=== PATIENT | male | born 1965 | race Caucasian/White ===

== ENCOUNTER 2017-09-09 04:32 | Inpatient (IN) ==
[~2017-09-09 04:32] MED LIST: CILOSTAZOL 100 MG TABLET PO SCH; DEXTROSE 50% 25 GM/50 ML VIAL IV PRN; GLUCAGON 1 MG VIAL IM PRN
[2017-09-09] MEDS ORDERED: NITROGLYCERIN 2% OINT 1 INCH/GM PACK TOP STA (04:57)
[2017-09-09] MEDS ORDERED: ONDANSETRON 4 MG/2 ML VIAL IV STA (04:57)
[2017-09-09] MEDS ORDERED: MORPHINE 2 MG/1 ML SYRINGE IV STA (04:57)
[2017-09-09] MEDS ORDERED: NITROGLYCERIN 2% OINT 1 INCH/GM PACK TOP ONE (05:00)
[2017-09-09] MEDS ORDERED: ONDANSETRON 4 MG/2 ML VIAL ONE (05:00)
[2017-09-09] MEDS ORDERED: MORPHINE 2 MG/1 ML SYRINGE ONE (05:01)
[2017-09-09 05:05] LABS: Basophils # 0.1 10*3/uL (0.0-0.2); Basophils % 1.1 % (0.0-0.8); Eosinophils # 0.3 10*3/uL (0.0-0.87); Eosinophils % 3.6 % (0.00-10.9); Hematocrit 48.9 VOL% (42.0-52.0); Hemoglobin 17.1 GM/DL (14.0-18.0); Immature Granulocytes % 0.3 %; Immature Granulocytes Absolute 0.02 #; Lymphocytes # 2.6 10*3/uL (1.4-4.0); Mean Corpuscular Hemoglobin 32 PG (27-34); Mean Corpuscular Volume 90.4 FL (87-102); Mean Platelet Volume 10.1 FL (9.6-12.0); Monocytes # 0.6 10*3/uL (0.11-0.8); Monocytes % 7.7 % (1.7-12.7); Neutrophils # 3.7 10*3/uL (1.4-7.4); Neutrophils % 51.3 % (38.7-73.9); Platelet Count 215 T/CUMM (130-400); Red Blood Count 5.41 MC/CUMM (3.8-5.5); Red Cell Distribution Width 13.1 % (9.3-17.3); White Blood Count 7.2 T/CUMM (4-12)
[2017-09-09 05:45] LABS: Alanine Aminotransferase 36 U/L (16-61); Albumin 4.1 G/DL (3.4-5.0); Alkaline Phosphatase 48 U/L (45-117); Aspartate Amino Transferase 28 U/L (0-37); Blood Urea Nitrogen 13 MG/DL (7-18); Calcium 8.9 MG/DL (8.5-10.1); Glucose 135 MG/DL (74-106); Sodium 136 MMOL/L (136-145); Total Protein 7.5 G/DL (6.4-8.3)
[2017-09-09 05:46] LABS: Troponin I Only 0.468 NG/ML (0.00-0.045)
[2017-09-09] MEDS ORDERED: MORPHINE 2 MG/1 ML SYRINGE IV PRN ×2 (06:33→09:44)
[2017-09-09] MEDS ORDERED: ONDANSETRON 4 MG/2 ML VIAL IV PRN ×2 (06:34→09:44)
[2017-09-09] MEDS ORDERED: amLODIPine 5 MG TABLET PO SCH (09:00)
[2017-09-09] MEDS ORDERED: NITROGLYCERIN 2% OINT 1 INCH/GM PACK TOP SCH (09:00)
[2017-09-09] MEDS ORDERED: ENOXAPARIN 40 MG/0.4 ML SYRINGE SUBCUT ONE (09:26)
[2017-09-09] MEDS ORDERED: CEFUROXIME INJ 1,500 MG in SODIUM CHLORIDE 0.9% 100 ML IV ONE (09:32)
[2017-09-09] MEDS ORDERED: ENOXAPARIN 40 MG/0.4 ML SYRINGE ONE (09:34)
[2017-09-09] MEDS ORDERED: DEXTROSE 50% 25 GM/50 ML VIAL IV PRN (09:43)
[2017-09-09] MEDS ORDERED: GLUCAGON 1 MG VIAL IM PRN (09:43)
[2017-09-09] MEDS: RANOLAZINE 500 MG TABLET PO SCH ×7 (10:34→21:02)
[2017-09-09] MEDS: amLODIPine 5 MG TABLET PO SCH (10:35)
[2017-09-09] MEDS: METOPROLOL SUCCINATE XL 100 MG TABLET PO SCH ×4 (10:35→15:30)
[2017-09-09] MEDS: predniSONE 20 MG TABLET PO SCH ×4 (10:36→15:30)
[2017-09-09] MEDS: NITROGLYCERIN 2% OINT 1 INCH/GM PACK TOP SCH ×2 (10:43→21:02)
[2017-09-09] MEDS ORDERED: CLORAZEPATE 7.5 MG TABLET ONE (10:44)
[2017-09-09] MEDS: CLORAZEPATE 3.75 MG TABLET PO SCH (10:45)
[2017-09-09] MEDS ORDERED: TRANEXAMIC ACID 1,000 MG/10 ML VIAL IV ONE ×2 (12:54)
[2017-09-09] MEDS ORDERED: CHLORHEXIDINE 4% SOLN 118 ML BOTTLE TOP SCH (15:00)
[2017-09-09] MEDS: CHLORHEXIDINE 4% SOLN 118 ML BOTTLE TOP SCH ×2 (15:22→21:01)
[2017-09-09] MEDS: SODIUM CHLORIDE 0.9% 1,000 ML IV SCH (15:23)
[2017-09-09] MEDS: CHLORHEXIDINE 0.12% ORAL RINSE 60 ML BOTTLE SWISH/SPIT SCH ×6 (15:23→21:02)
[2017-09-09] MEDS: clonazePAM 0.5 MG TABLET PO SCH ×3 (15:25→15:30)
[2017-09-09] MEDS: SERTRALINE 25 MG TABLET PO SCH ×3 (15:26→15:30)
[2017-09-09] MEDS ORDERED: clonazePAM 0.5 MG TABLET PO SCH (21:00)
[2017-09-09] MEDS ORDERED: SERTRALINE 25 MG TABLET PO SCH (21:00)
[2017-09-10] MEDS ORDERED: PAPAVERINE 60 MG/2 ML VIAL ONE (04:43)
[2017-09-10] MEDS ORDERED: VANCOMYCIN 1,000 MG VIAL ONE (04:44)
[2017-09-10] MEDS ORDERED: DIAZEPAM 5 MG TABLET PO ONE (06:00)
[2017-09-10] MEDS ORDERED: FAMOTIDINE 20 MG TABLET PO ONE (06:00)
[2017-09-10] MEDS ORDERED: CEFUROXIME INJ 1,500 MG in SODIUM CHLORIDE 0.9% 50 ML IV ONE (06:00)
[2017-09-10 07:36] LABS: ABG Base Excess -3.4 MMOL/L (-2.5-2.5); ABG HCO3 21.6 MMOL/L (20-26); ABG Oxygen Saturation 99.9 % (95-100); ABG PCO2 32.3 MM HG (35-48); ABG PH 7.405 (7.35-7.45); ABG TCO2 17.3 MMOL/L (23-27); Glucose Heart Surgery 164 MG/DL (74-106); Hematocrit Heart Surgery 44.3 PERCENT (42-52); Hemoglobin Heart Surgery 14.4 G/DL (14.0-18.0); Ionized Calcium Arterial 1.19 MMOL/L (1.21-1.46); PCO2 Patient Temp Arterial 32.3 MMHG; PH Patient Temp Arterial 7.405; Patient Temperature 37 CELCIUS; Potassium Heart/CVR 3.7 MMOL/L (3.5-5.1); Sodium Heart/CVR 140 MMOL/L (135-145)
[2017-09-10] MEDS ORDERED: ALBUTEROL/IPRATROPIUM 3 ML NEB RESP TX ONE (07:45)
[2017-09-10 07:57] LABS: Apearance,Urine CLEAR (Clear); Bilirubin,Urine Negative (Negative); Blood, Urine Negative (Negative); Glucose,Urine (UA) >=500 mg/dL (Negative); Hyaline Casts,Urine 1 /LPF (0-3); Ketones,Urine Negative (Negative); Mucus,Urine Occasional /LPF (Occasional); Nitrite,Urine Negative (Negative); Protein,Urine Negative; RBC,Urine <1 /HPF (0-4); Urine Color Yellow (Yellow); Urine Specific Gravity 1.026 (1.001-1.035); Urine Urobilinogen < 2.0 EU/DL (0.2-1.0); WBC,Urine 1 /HPF (0-6)
[2017-09-10 09:15] LABS: Hematocrit Heart Surgery 32.2 PERCENT (42-52); Hemoglobin Heart Surgery 10.4 G/DL (14.0-18.0); PCO2 Patient Temp Venous 38.5 MM HG; PH Patient Temp Venous 7.394; PO2 Patient Temp Venous 35.8 MM HG; VBG Base Excess -1.1 MEQ/L (0-4); VBG HCO3 23.2 MEQ/L (24-28); VBG Oxygen Saturation 78.2 %; VBG PCO2 44.5 MMHG (41-51); VBG PH 7.351; VBG PO2 44.1 MMHG (17-40)
[2017-09-10 09:47] LABS: Hemoglobin Heart Surgery 11.6 G/DL (14.0-18.0); PCO2 Patient Temp Venous 36.6 MM HG; PH Patient Temp Venous 7.429; PO2 Patient Temp Venous 31.7 MM HG; Potassium Heart/CVR 4.2 MMOL/L (3.5-5.1); VBG Base Excess -0.5 MEQ/L (0-4); VBG HCO3 24.2 MEQ/L (24-28); VBG Oxygen Saturation 78.1 %; VBG PH 7.4; VBG PO2 36.5 MMHG (17-40)
[2017-09-10] MEDS ORDERED: PHENYLEPHRINE DRIP 40 MG/250 ML PREMIX IV ONE (09:50)
[2017-09-10] MEDS ORDERED: CALCIUM CHLORIDE 1,000 MG/10 ML SYRINGE IV ONE (09:50)
[2017-09-10] MEDS ORDERED: NITROPRUSSIDE 50 MG/2 ML VIAL ONE (09:50)
[2017-09-10] MEDS ORDERED: POTASSIUM CHLORIDE RIDER 100 ML IV ONE (09:51)
[2017-09-10] MEDS ORDERED: PROTAMINE SULFATE 50 MG/5 ML VIAL IV ONE (09:52)
[2017-09-10] MEDS ORDERED: SODIUM BICARBONATE 50 MEQ/50 ML SYRINGE IV ONE ×2 (09:52→11:00)
[2017-09-10] MEDS ORDERED: ALBUMIN 5% 12.5 GM/250 ML VIAL IV ONE (09:53)
[2017-09-10 10:33] LABS: Hematocrit Heart Surgery 35.1 PERCENT (42-52); Hemoglobin Heart Surgery 11.4 G/DL (14.0-18.0); PCO2 Patient Temp Venous 39.6 MM HG; PH Patient Temp Venous 7.371; PO2 Patient Temp Venous 37.1 MM HG; Potassium Heart/CVR 4.3 MMOL/L (3.5-5.1); VBG Base Excess -2.1 MEQ/L (0-4); VBG HCO3 22.2 MEQ/L (24-28); VBG Oxygen Saturation 69.1 %; VBG PCO2 39.6 MMHG (41-51); VBG PH 7.371; VBG PO2 37.1 MMHG (17-40)
[2017-09-10] MEDS ORDERED: DEXTROSE 5% KCL 20 MEQ 20 MEQ/1,000 ML BAG IV ONE (10:59)
[2017-09-10 11:00] LABS: ABG HCO3 21.8 MMOL/L (20-26); ABG Oxygen Saturation 99.1 % (95-100); ABG PCO2 37.9 MM HG (35-48); ABG PH 7.377 (7.35-7.45); ABG PO2 323.1 MM HG (80-95); ABG TCO2 22.9 MMOL/L (23-27); Glucose Heart Surgery 198 MG/DL (74-106); Hemoglobin Heart Surgery 12.2 G/DL (14.0-18.0); Ionized Calcium Arterial 1.22 MMOL/L (1.21-1.46); PCO2 Patient Temp Arterial 37.9 MMHG; PH Patient Temp Arterial 7.377; PO2 Patient Temp Arterial 323.1 MM HG; Patient Temperature 37 CELCIUS; Potassium Heart/CVR 3.7 MMOL/L (3.5-5.1); Sodium Heart/CVR 138 MMOL/L (135-145)
[2017-09-10] MEDS ORDERED: methylPREDNISolone SOD SUC 1,000 MG/8 ML VIAL ONE (11:00)
[2017-09-10] MEDS ORDERED: MANNITOL 12.5 GM/50 ML VIAL IV ONE (11:00)
[2017-09-10] MEDS ORDERED: PROTAMINE SULFATE 250 MG/25 ML VIAL IV ONE (11:00)
[2017-09-10] MEDS ORDERED: FUROSEMIDE 20 MG/2 ML VIAL ONE (11:00)
[2017-09-10] MEDS ORDERED: POTASSIUM CHLORIDE 20 MEQ/10 ML VIAL ONE (11:00)
[2017-09-10] MEDS ORDERED: HEPARIN 10,000 UNIT/10 ML VIAL ONE (11:00)
[2017-09-10] MEDS ORDERED: MAGNESIUM SULFATE 1 GM/2 ML VIAL ONE (11:00)
[2017-09-10] MEDS ORDERED: ALBUMIN 25% 25 GM/100 ML VIAL IV ONE (11:00)
[2017-09-10] MEDS ORDERED: AMIODARONE 450 MG/9 ML VIAL IV ONE (11:17)
[2017-09-10] MEDS: LACTATED RINGERS 1,000 ML IV PRN ×2 (11:45→15:05)
[2017-09-10] MEDS ORDERED: SUFentanil 250 MCG/5 ML AMP ONE (12:10)
[2017-09-10] MEDS ORDERED: MIDAZOLAM 10 MG/2 ML VIAL ONE (12:10)
[2017-09-10] MEDS ORDERED: CALCIUM CHLORIDE 1,000 MG/10 ML VIAL IV ONE (12:12)
[2017-09-10] MEDS ORDERED: HEPARIN/NACL 0.9% 2 UNITS/ML 500 ML IV ONE (12:12)
[2017-09-10] MEDS ORDERED: PHENYLEPHRINE DRIP 20 MG/250 ML PREMIX IV ONE (12:12)
[2017-09-10] MEDS ORDERED: SEVOFLURANE 1 UNIT/15 MINUTE INH ONE (12:13)
[2017-09-10] MEDS ORDERED: AMIODARONE 150 MG/3 ML VIAL ONE (12:13)
[2017-09-10] MEDS ORDERED: ETOMIDATE 20 MG/10 ML VIAL IV ONE (12:13)
[2017-09-10] MEDS ORDERED: NITROGLYCERIN DRIP 50 MG/250 ML BOTTLE IV ONE (12:13)
[2017-09-10] MEDS ORDERED: VECURONIUM 10 MG VIAL IV ONE (12:13)
[2017-09-10] MEDS ORDERED: SODIUM CHLORIDE 0.9% 100 ML IV ONE (12:14)
[2017-09-10] MEDS ORDERED: SODIUM CHLORIDE 0.9% 2,000 ML IV ONE (12:14)
[2017-09-10] MEDS ORDERED: SODIUM CHLORIDE 0.9% 250 ML IV ONE (12:14)
[2017-09-10] MEDS ORDERED: LACTATED RINGERS 2,000 ML IV ONE (12:14)
[2017-09-10] MEDS ORDERED: MORPHINE 2 MG/1 ML SYRINGE IV PRN (12:29)
[2017-09-10] MEDS ORDERED: ONDANSETRON 4 MG/2 ML VIAL IV PRN (12:29)
[2017-09-10] MEDS ORDERED: VECURONIUM 10 MG VIAL IV PRN ×2 (12:29)
[2017-09-10] MEDS ORDERED: ACETAMINOPHEN 650 MG SUPP RECTAL PRN (12:29)
[2017-09-10] MEDS ORDERED: LACTATED RINGERS 250 ML IV PRN (12:29)
[2017-09-10] MEDS ORDERED: MAGNESIUM SULF RIDER 2 GM in PREMIX 1 EACH IV PRN (12:29)
[2017-09-10] MEDS ORDERED: INSULIN REGULAR 100 UNIT/ML IV PRN (12:29)
[2017-09-10] MEDS ORDERED: ALBUMIN 5% 12.5 GM in PREMIX 1 EACH IV PRN (12:29)
[2017-09-10] MEDS ORDERED: MAGNESIUM SULF RIDER 4 GM in PREMIX 1 EACH IV PRN (12:29)
[2017-09-10] MEDS ORDERED: INSULIN REGULAR DRIP 100 ML IV SCH (12:29)
[2017-09-10] MEDS ORDERED: CALCIUM CHLORIDE 1,000 MG/10 ML SYRINGE IV PRN (12:29)
[2017-09-10] MEDS ORDERED: POTASSIUM CHLORIDE RIDER 10 MEQ in PREMIX 1 EACH IV PRN (12:29)
[2017-09-10] MEDS ORDERED: PHENYLEPHRINE DRIP 40 MG/250 ML PREMIX IV PRN (12:29)
[2017-09-10] MEDS ORDERED: DEXTROSE 50% 25 GM/50 ML VIAL IV PRN ×2 (12:29)
[2017-09-10] MEDS ORDERED: NITROPRUSSIDE 100 MG in DEXTROSE 5% 250 ML IV PRN (12:29)
[2017-09-10] MEDS ORDERED: INSULIN REGULAR 100 UNIT/ML IV ONE (12:29)
[2017-09-10] MEDS ORDERED: SODIUM CHLORIDE 0.45% 1,000 ML IV SCH ×2 (12:29)
[2017-09-10 12:35] LABS: ABG Base Excess -1.6 MMOL/L (-2.5-2.5); ABG HCO3 23.1 MMOL/L (20-26); ABG Oxygen Saturation 98.8 % (95-100); ABG PCO2 42.3 MM HG (35-48); ABG TCO2 20.9 MMOL/L (23-27); Glucose Heart Surgery 204 MG/DL (74-106); Hematocrit Heart Surgery 40.1 PERCENT (42-52); Potassium Heart/CVR 3.8 MMOL/L (3.5-5.1)
[2017-09-10 12:37] LABS: Basophils # 0.1 10*3/uL (0.0-0.2); Basophils % 0.4 % (0.0-0.8); Eosinophils # 0.1 10*3/uL (0.0-0.87); Eosinophils % 0.7 % (0.00-10.9); Hematocrit 38.2 VOL% (42.0-52.0); Immature Granulocytes % 0.4 %; Immature Granulocytes Absolute 0.05 #; Lymphocytes # 1.5 10*3/uL (1.4-4.0); Lymphocytes % 10.7 % (21.2-54.2); Mean Corpuscular HGB Conc 34.8 GM/DL (32-36); Mean Corpuscular Hemoglobin 32 PG (27-34); Mean Platelet Volume 10.4 FL (9.6-12.0); Monocytes # 0.8 10*3/uL (0.11-0.8); Monocytes % 5.9 % (1.7-12.7); Neutrophils # 11.2 10*3/uL (1.4-7.4); Neutrophils % 81.9 % (38.7-73.9); Red Cell Distribution Width 13.2 % (9.3-17.3)
[2017-09-10 12:38] LABS: Hemoglobin 13.3 GM/DL (14.0-18.0); Platelet Count 189 T/CUMM (130-400); White Blood Count 13.6 T/CUMM (4-12)
[2017-09-10 12:41] LABS: INR 1.1; PT Patient Result 11.4 SECS; Partial Thromboplastin Time 31.1 SECS (0-40)
[2017-09-10 12:51] LABS: Albumin 3.4 G/DL (3.4-5.0); Bilirubin,Total 0.7 MG/DL (0.2-1.0); Calcium 8.4 MG/DL (8.5-10.1); Magnesium 2.6 MG/DL (1.8-2.4); Potassium 4.2 MMOL/L (3.5-5.1); Total Protein 5.4 G/DL (6.4-8.3)
[2017-09-10] MEDS: MIDAZOLAM 2 MG/2 ML VIAL IV PRN (13:00)
[2017-09-10 13:09] LABS: CKMB % 5.2 %
[2017-09-10 13:15] LABS: Troponin I Only 2.99 NG/ML (0.00-0.045)
[2017-09-10] MEDS: KETOROLAC 30 MG/1 ML VIAL IV SCH ×2 (13:30→19:11)
[2017-09-10] MEDS: MIDAZOLAM 10 MG/2 ML VIAL IV PRN ×2 (13:50→14:00)
[2017-09-10] MEDS: CLORAZEPATE 3.75 MG TABLET PO SCH (14:15)
[2017-09-10] MEDS: CHLORHEXIDINE 4% SOLN 118 ML BOTTLE TOP SCH (14:16)
[2017-09-10] MEDS: amLODIPine 5 MG TABLET PO SCH (14:17)
[2017-09-10] MEDS: CHLORHEXIDINE 0.12% ORAL RINSE 60 ML BOTTLE SWISH/SPIT SCH ×2 (14:17→21:10)
[2017-09-10] MEDS: NITROGLYCERIN 2% OINT 1 INCH/GM PACK TOP SCH (14:17)
[2017-09-10] MEDS: METOPROLOL SUCCINATE XL 100 MG TABLET PO SCH (14:18)
[2017-09-10] MEDS: SODIUM CHLORIDE 0.9% 1,000 ML IV SCH (14:18)
[2017-09-10] MEDS: RANOLAZINE 500 MG TABLET PO SCH (14:18)
[2017-09-10] MEDS: predniSONE 20 MG TABLET PO SCH (14:18)
[2017-09-10] MEDS ORDERED: PROPOFOL 1,000 MG/100 ML BOTTLE IV ONE (14:30)
[2017-09-10] MEDS: PROPOFOL 1,000 MG/100 ML BOTTLE IV SCH ×2 (15:00→23:48)
[2017-09-10 17:07] LABS: ABG Base Excess -2.7 MMOL/L (-2.5-2.5); ABG HCO3 22.2 MMOL/L (20-26); ABG Oxygen Saturation 99.3 % (95-100); ABG PCO2 42.6 MM HG (35-48); ABG PH 7.342 (7.35-7.45); ABG TCO2 20.3 MMOL/L (23-27); Glucose Heart Surgery 223 MG/DL (74-106); Hematocrit Heart Surgery 40.8 PERCENT (42-52); Hemoglobin Heart Surgery 13.3 G/DL (14.0-18.0); Potassium Heart/CVR 4.3 MMOL/L (3.5-5.1)
[2017-09-10] MEDS: CEFUROXIME INJ 1,500 MG in SODIUM CHLORIDE 0.9% 50 ML IV SCH (19:20)
[2017-09-10] MEDS ORDERED: FUROSEMIDE 40 MG/4 ML VIAL IV PRN (19:46)
[2017-09-10] MEDS ORDERED: AMIODARONE INJ 450 MG in DEXTROSE 5% 241 ML IV SCH (21:00)
[2017-09-10 21:36] LABS: ABG Base Excess -0.7 MMOL/L (-2.5-2.5); ABG HCO3 23.8 MMOL/L (20-26); ABG Oxygen Saturation 99.6 % (95-100); ABG PCO2 36.3 MM HG (35-48); ABG PH 7.417 (7.35-7.45); ABG TCO2 20.4 MMOL/L (23-27); Glucose Heart Surgery 161 MG/DL (74-106); Hematocrit Heart Surgery 39.5 PERCENT (42-52); Hemoglobin Heart Surgery 12.8 G/DL (14.0-18.0); Potassium Heart/CVR 3.7 MMOL/L (3.5-5.1)
[2017-09-10] MEDS: POTASSIUM CHLORIDE RIDER 20 MEQ in PREMIX 1 EACH IV PRN (21:47)
[2017-09-10] MEDS: chlordiazePOXIDE 25 MG CAPSULE PO SCH (21:51)
[2017-09-10 22:05] LABS: CKMB % 2.4 %
[2017-09-10 22:07] LABS: Troponin I Only 2.65 NG/ML (0.00-0.045)
[2017-09-11] MEDS: KETOROLAC 30 MG/1 ML VIAL IV SCH ×4 (00:48→18:03)
[2017-09-11 01:50] LABS: ABG Oxygen Saturation 98.9 % (95-100); ABG PCO2 32.2 MM HG (35-48); ABG PH 7.471 (7.35-7.45); ABG PO2 169.4 MM HG (80-95); ABG TCO2 23.9 MMOL/L (23-27); Glucose Heart Surgery 121 MG/DL (74-106); Hemoglobin Heart Surgery 12.9 G/DL (14.0-18.0); Potassium Heart/CVR 3.8 MMOL/L (3.5-5.1)
[2017-09-11] MEDS: POTASSIUM CHLORIDE RIDER 20 MEQ in PREMIX 1 EACH IV PRN ×2 (02:05→05:50)
[2017-09-11] MEDS: MORPHINE 10 MG/1 ML VIAL IV PRN ×2 (03:45→08:30)
[2017-09-11] MEDS: PROPOFOL 1,000 MG/100 ML BOTTLE IV SCH ×2 (03:47→07:29)
[2017-09-11 04:49] LABS: Basophils % 0.2 % (0.0-0.8); Hematocrit 36.7 VOL% (42.0-52.0); Hemoglobin 12.9 GM/DL (14.0-18.0); Immature Granulocytes % 0.3 %; Immature Granulocytes Absolute 0.04 #; Lymphocytes # 1.1 10*3/uL (1.4-4.0); Lymphocytes % 9.2 % (21.2-54.2); Mean Corpuscular HGB Conc 35.1 GM/DL (32-36); Mean Corpuscular Hemoglobin 32 PG (27-34); Mean Corpuscular Volume 89.7 FL (87-102); Mean Platelet Volume 10.6 FL (9.6-12.0); Monocytes # 0.6 10*3/uL (0.11-0.8); Monocytes % 5.2 % (1.7-12.7); Neutrophils # 9.7 10*3/uL (1.4-7.4); Neutrophils % 85.1 % (38.7-73.9); Platelet Count 154 T/CUMM (130-400); Red Blood Count 4.09 MC/CUMM (3.8-5.5); Red Cell Distribution Width 13.2 % (9.3-17.3); White Blood Count 11.4 T/CUMM (4-12)
[2017-09-11 04:50] LABS: ABG Base Excess -0.8 MMOL/L (-2.5-2.5); ABG HCO3 23.8 MMOL/L (20-26); ABG Oxygen Saturation 99.2 % (95-100); ABG PCO2 33.6 MM HG (35-48); ABG PH 7.438 (7.35-7.45); ABG TCO2 19.9 MMOL/L (23-27); Glucose Heart Surgery 138 MG/DL (74-106); Hematocrit Heart Surgery 39.1 PERCENT (42-52); Hemoglobin Heart Surgery 12.7 G/DL (14.0-18.0); Potassium Heart/CVR 3.8 MMOL/L (3.5-5.1)
[2017-09-11 05:19] LABS: CKMB % 1.5 %
[2017-09-11 05:24] LABS: Alanine Aminotransferase 32 U/L (16-61); Alkaline Phosphatase 33 U/L (45-117); Aspartate Amino Transferase 44 U/L (0-37); Bilirubin,Direct < 0.100 MG/DL (0.0-0.20); Blood Urea Nitrogen 14 MG/DL (7-18); Calcium 8.5 MG/DL (8.5-10.1); Glucose 131 MG/DL (74-106); Sodium 143 MMOL/L (136-145); Total Protein 5.2 G/DL (6.4-8.3)
[2017-09-11 05:27] LABS: Troponin I Only 2.06 NG/ML (0.00-0.045)
[2017-09-11] MEDS: chlordiazePOXIDE 25 MG CAPSULE PO SCH (06:08)
[2017-09-11] MEDS: CEFUROXIME INJ 1,500 MG in SODIUM CHLORIDE 0.9% 50 ML IV SCH (07:27)
[2017-09-11] MEDS ORDERED: AMIODARONE 200 MG TABLET PO SCH (09:30)
[2017-09-11] MEDS ORDERED: NITROGLYCERIN SL 0.4 MG TABLET SL PRN (09:36)
[2017-09-11] MEDS ORDERED: GLUCAGON 1 MG VIAL IM PRN ×2 (09:36)
[2017-09-11] MEDS ORDERED: ALUMINUM/MAGNES/SIMETH MAX STR 30 ML UDCUP PO PRN (09:36)
[2017-09-11] MEDS ORDERED: SODIUM CHLOR 0.45% KCL 20 MEQ 20 MEQ/1,000 ML BAG IV SCH (09:36)
[2017-09-11] MEDS ORDERED: ACETAMINOPHEN 325 MG TABLET PO PRN (09:36)
[2017-09-11] MEDS ORDERED: ONDANSETRON 4 MG/2 ML VIAL IV PRN (09:36)
[2017-09-11] MEDS ORDERED: POTASSIUM CHLORIDE 20 MEQ TABLET PO PRN (09:36)
[2017-09-11] MEDS ORDERED: MAGNESIUM HYDROXIDE SUSP 30 ML UDCUP PO PRN (09:36)
[2017-09-11] MEDS ORDERED: ZALEPLON 5 MG CAPSULE PO PRN (09:36)
[2017-09-11] MEDS ORDERED: MAGNESIUM SULF RIDER 4 GM in PREMIX 1 EACH IV PRN (09:36)
[2017-09-11] MEDS ORDERED: DEXTROSE 50% 25 GM/50 ML VIAL IV PRN ×2 (09:36)
[2017-09-11] MEDS ORDERED: MAGNESIUM SULF RIDER 2 GM in PREMIX 1 EACH IV PRN (09:36)
[2017-09-11] MEDS ORDERED: KETOROLAC 30 MG/1 ML VIAL IV SCH (09:36)
[2017-09-11] MEDS ORDERED: NON-FORMULARY MEDICATION (Lansoprazole [Prevacid] 30 MG) PO SCH (09:36)
[2017-09-11] MEDS: CHLORHEXIDINE 0.12% ORAL RINSE 60 ML BOTTLE SWISH/SPIT SCH ×2 (09:50→20:34)
[2017-09-11] MEDS: ISOSORBIDE MONONITRATE 60 MG TABLET PO SCH (10:00)
[2017-09-11] MEDS: METOPROLOL SUCCINATE XL 100 MG TABLET PO SCH (10:00)
[2017-09-11] MEDS: amLODIPine 5 MG TABLET PO SCH (10:00)
[2017-09-11] MEDS: SERTRALINE 25 MG TABLET PO SCH (10:17)
[2017-09-11] MEDS: AMIODARONE 200 MG TABLET PO SCH ×2 (14:17→20:38)
[2017-09-11] MEDS: oxyCODONE/ACETAMINOPHEN 5-325 MG TABLET PO PRN ×2 (16:25→20:37)
[2017-09-11] MEDS: RANOLAZINE 500 MG TABLET PO SCH (20:37)
[2017-09-12] MEDS: KETOROLAC 30 MG/1 ML VIAL IV SCH ×4 (00:01→17:41)
[2017-09-12] MEDS: oxyCODONE/ACETAMINOPHEN 5-325 MG TABLET PO PRN ×2 (01:48→05:42)
[2017-09-12 05:04] LABS: Basophils % 0.2 % (0.0-0.8); Hematocrit 38.3 VOL% (42.0-52.0); Hemoglobin 13.2 GM/DL (14.0-18.0); Immature Granulocytes % 0.8 %; Immature Granulocytes Absolute 0.14 #; Lymphocytes # 2.6 10*3/uL (1.4-4.0); Lymphocytes % 13.9 % (21.2-54.2); Mean Corpuscular HGB Conc 34.5 GM/DL (32-36); Mean Corpuscular Hemoglobin 32 PG (27-34); Mean Corpuscular Volume 92.1 FL (87-102); Mean Platelet Volume 11.5 FL (9.6-12.0); Monocytes # 1.1 10*3/uL (0.11-0.8); Monocytes % 5.8 % (1.7-12.7); Neutrophils # 14.7 10*3/uL (1.4-7.4); Neutrophils % 79.3 % (38.7-73.9); Platelet Count 164 T/CUMM (130-400); Red Blood Count 4.16 MC/CUMM (3.8-5.5); Red Cell Distribution Width 13.6 % (9.3-17.3); White Blood Count 18.6 T/CUMM (4-12)
[2017-09-12] MEDS ORDERED: FUROSEMIDE 40 MG/4 ML VIAL IV ONE ×3 (06:00→20:00)
[2017-09-12 06:08] LABS: Albumin 3.1 G/DL (3.4-5.0); Bilirubin,Direct 0.2 MG/DL (0.0-0.20); Bilirubin,Indirect 0.5 MG/DL (0.0-1.0); Bilirubin,Total 0.7 MG/DL (0.2-1.0); CKMB % 2.5 %; Calcium 8.7 MG/DL (8.5-10.1); Magnesium 2.3 MG/DL (1.8-2.4); Osmolality,Calculated 284.8 MOS/KG (273-304); Potassium 4.5 MMOL/L (3.5-5.1); Total Protein 5.8 G/DL (6.4-8.3)
[2017-09-12 06:21] LABS: Troponin I Only 13.7 NG/ML (0.00-0.045)
[2017-09-12] MEDS ORDERED: ASPIRIN EC 325 MG TABLET PO SCH (09:00)
[2017-09-12] MEDS ORDERED: Dapagliflozin Propanediol [Farxiga] 10 MG PO SCH (09:00)
[2017-09-12] MEDS ORDERED: ASPIRIN 325 MG TABLET PO SCH (09:00)
[2017-09-12] MEDS ORDERED: ROSUVASTATIN 10 MG TABLET PO SCH (09:00)
[2017-09-12] MEDS: ISOSORBIDE MONONITRATE 60 MG TABLET PO SCH (09:38)
[2017-09-12] MEDS: AMIODARONE 200 MG TABLET PO SCH ×2 (09:38→21:11)
[2017-09-12] MEDS: DOCUSATE SODIUM 100 MG CAPSULE PO SCH (09:38)
[2017-09-12] MEDS: CILOSTAZOL 100 MG TABLET PO SCH (09:38)
[2017-09-12] MEDS: SERTRALINE 25 MG TABLET PO SCH (09:38)
[2017-09-12] MEDS: PANTOPRAZOLE 40 MG TABLET PO SCH (09:38)
[2017-09-12] MEDS: METOPROLOL SUCCINATE XL 100 MG TABLET PO SCH (09:38)
[2017-09-12] MEDS: RANOLAZINE 500 MG TABLET PO SCH (09:38)
[2017-09-12] MEDS: amLODIPine 5 MG TABLET PO SCH (09:38)
[2017-09-12] MEDS: CHLORHEXIDINE 0.12% ORAL RINSE 60 ML BOTTLE SWISH/SPIT SCH (09:43)
[2017-09-12] MEDS: FERROUS SULFATE 325 MG TABLET PO SCH (09:43)
[2017-09-12] MEDS: ALBUTEROL/IPRATROPIUM 3 ML NEB RESP TX SCH ×3 (11:39→19:43)
[2017-09-12] MEDS: INSULIN REGULAR 100 UNIT/ML SUBCUT SCH ×3 (12:27→21:11)
[2017-09-12 15:24] LABS: ABG HCO3 27.2 MMOL/L (20-26); ABG Oxygen Saturation 85.5 % (95-100); ABG TCO2 28.4 MMOL/L (23-27); Allen Test Positive
[2017-09-12 16:17] LABS: ABG Base Excess 3.1 MMOL/L (-2.5-2.5); ABG HCO3 27.1 MMOL/L (20-26); ABG Oxygen Saturation 87.9 % (95-100); ABG PCO2 39.2 MM HG (35-48); ABG PH 7.457 (7.35-7.45); ABG PO2 50.4 MM HG (80-95); ABG TCO2 28.3 MMOL/L (23-27)
[2017-09-12] MEDS ORDERED: CRESTOR PO SCH (21:00)
[2017-09-12] MEDS: INSULIN NPH 100 UNIT/ML SUBCUT SCH (21:08)
[2017-09-12] MEDS: cefTRIAXone 1,000 MG in SYRINGE 1 EACH IV SCH (21:10)
[2017-09-12] MEDS: RANEXA PO SCH (21:16)
[2017-09-12] MEDS: HYDROmorphone 2 MG/1 ML VIAL IV PRN (23:58)
[2017-09-13] MEDS: INSULIN REGULAR 100 UNIT/ML SUBCUT SCH ×6 (00:05→20:47)
[2017-09-13] MEDS: CHLORHEXIDINE 0.12% ORAL RINSE 60 ML BOTTLE SWISH/SPIT SCH ×3 (00:11→20:48)
[2017-09-13] MEDS: ALBUTEROL/IPRATROPIUM 3 ML NEB RESP TX SCH ×6 (00:14→19:58)
[2017-09-13] MEDS: KETOROLAC 30 MG/1 ML VIAL IV SCH (01:38)
[2017-09-13] MEDS ORDERED: LACTATED RINGERS 250 ML IV ONE ×2 (02:08→05:02)
[2017-09-13 02:26] LABS: Basophils % 0.3 % (0.0-0.8); Eosinophils % 0.3 % (0.00-10.9); Hematocrit 33.3 VOL% (42.0-52.0); Hemoglobin 11.4 GM/DL (14.0-18.0); Immature Granulocytes % 0.5 %; Immature Granulocytes Absolute 0.06 #; Lymphocytes # 1.7 10*3/uL (1.4-4.0); Lymphocytes % 14.4 % (21.2-54.2); Mean Corpuscular HGB Conc 34.2 GM/DL (32-36); Mean Corpuscular Hemoglobin 32 PG (27-34); Mean Corpuscular Volume 92.2 FL (87-102); Mean Platelet Volume 10.8 FL (9.6-12.0); Monocytes # 0.7 10*3/uL (0.11-0.8); Monocytes % 6.5 % (1.7-12.7); Neutrophils # 8.9 10*3/uL (1.4-7.4); Platelet Count 113 T/CUMM (130-400); Red Blood Count 3.61 MC/CUMM (3.8-5.5); Red Cell Distribution Width 13.3 % (9.3-17.3); White Blood Count 11.5 T/CUMM (4-12)
[2017-09-13 02:30] LABS: Allen Test Positive; Pt O2 Delivery Device Venturi Mask
[2017-09-13] MEDS ORDERED: LACTATED RINGERS 1,000 ML IV SCH (02:30)
[2017-09-13 02:31] LABS: ABG Base Excess -0.5 MMOL/L (-2.5-2.5); ABG HCO3 23.7 MMOL/L (20-26); ABG Oxygen Saturation 83.3 % (95-100); ABG PCO2 39.6 MM HG (35-48); ABG PH 7.395 (7.35-7.45); ABG PO2 49.5 MM HG (80-95); ABG TCO2 21.7 MMOL/L (23-27)
[2017-09-13 03:05] LABS: Albumin 2.6 G/DL (3.4-5.0); Bilirubin,Direct 0.24 MG/DL (0.0-0.20); Bilirubin,Total 1.2 MG/DL (0.2-1.0); CKMB % 1.4 %; Calcium 8.1 MG/DL (8.5-10.1); Osmolality,Calculated 287.8 MOS/KG (273-304); Potassium 4.7 MMOL/L (3.5-5.1)
[2017-09-13 03:06] LABS: Calcium 8.4 MG/DL (8.5-10.1); Magnesium 2.4 MG/DL (1.8-2.4); Osmolality,Calculated 286.8 MOS/KG (273-304); Potassium 4.7 MMOL/L (3.5-5.1)
[2017-09-13 03:08] LABS: Troponin I Only 15.7 NG/ML (0.00-0.045)
[2017-09-13] MEDS: PHENYLEPHRINE DRIP 40 MG/250 ML PREMIX IV SCH ×2 (05:57→19:41)
[2017-09-13] MEDS: HEPARIN DRIP 25,000 UNITS/500 ML PREMIX IV SCH ×2 (05:58→23:00)
[2017-09-13 06:05] LABS: INR 1.3; PT Patient Result 13.4 SECS; Partial Thromboplastin Time 32.7 SECS (0-40)
[2017-09-13 06:10] LABS: Allen Test Positive
[2017-09-13 06:11] LABS: ABG Base Excess -2.1 MMOL/L (-2.5-2.5); ABG HCO3 22.6 MMOL/L (20-26); ABG Oxygen Saturation 92.4 % (95-100); ABG PCO2 40.8 MM HG (35-48); ABG PH 7.363 (7.35-7.45); ABG TCO2 20.6 MMOL/L (23-27)
[2017-09-13] MEDS ORDERED: ASPIRIN EC PO SCH (09:00)
[2017-09-13] MEDS ORDERED: TOPROL XL PO SCH (09:00)
[2017-09-13] MEDS ORDERED: NORVASC PO SCH (09:00)
[2017-09-13] MEDS ORDERED: IMDUR PO SCH (09:00)
[2017-09-13] MEDS ORDERED: LISINOPRIL 5 MG TABLET PO SCH (09:00)
[2017-09-13] MEDS ORDERED: ZOLOFT PO SCH (09:00)
[2017-09-13] MEDS: INSULIN NPH 100 UNIT/ML SUBCUT SCH ×2 (09:23→15:59)
[2017-09-13] MEDS: FERROUS SULFATE 325 MG TABLET PO SCH (10:29)
[2017-09-13] MEDS: CILOSTAZOL 100 MG TABLET PO SCH (10:47)
[2017-09-13] MEDS: PANTOPRAZOLE 40 MG TABLET PO SCH (10:47)
[2017-09-13] MEDS: DOCUSATE SODIUM 100 MG CAPSULE PO SCH (10:47)
[2017-09-13] MEDS: HYDROmorphone 2 MG/1 ML VIAL IV PRN (13:12)
[2017-09-13] MEDS: RANEXA PO SCH (13:38)
[2017-09-13 14:27] LABS: Apearance,Urine Slightly Hazy (Clear); Bilirubin,Urine Negative (Negative); Blood, Urine Moderate mg/dL (Negative); Glucose,Urine (UA) >=500 mg/dL (Negative); Ketones,Urine Negative (Negative); Mucus,Urine Occasional /LPF (Occasional); Nitrite,Urine Negative (Negative); Protein,Urine 30 MG/DL; RBC,Urine 2 /HPF (0-4); WBC,Urine 1 /HPF (0-6)
[2017-09-13 14:29] LABS: Urine Color Dark yellow (Yellow)
[2017-09-13] MEDS ORDERED: PROPOFOL 1,000 MG/100 ML BOTTLE IV ONE (14:35)
[2017-09-13] MEDS: PROPOFOL 1,000 MG/100 ML BOTTLE IV SCH ×4 (14:45→23:45)
[2017-09-13 15:48] LABS: Pt O2 Delivery Device Ventilator
[2017-09-13 15:50] LABS: ABG Base Excess -1.2 MMOL/L (-2.5-2.5); ABG HCO3 23.4 MMOL/L (20-26); ABG Oxygen Saturation 98.5 % (95-100); ABG PCO2 43.1 MM HG (35-48); ABG TCO2 21.8 MMOL/L (23-27)
[2017-09-13] MEDS: methylPREDNISolone SOD SUC 40 MG/1 ML VIAL IV SCH ×2 (18:20→23:56)
[2017-09-13 18:35] LABS: ABG Base Excess 0.4 MMOL/L (-2.5-2.5); ABG HCO3 24.7 MMOL/L (20-26); ABG PH 7.376 (7.35-7.45); ABG PO2 76.4 MM HG (80-95); ABG TCO2 23.2 MMOL/L (23-27); Pt O2 Delivery Device Ventilator
[2017-09-13] MEDS: cefTRIAXone 1,000 MG in SYRINGE 1 EACH IV SCH (20:40)
[2017-09-13] MEDS ORDERED: ROSUVASTATIN 10 MG TABLET PO SCH (21:00)
[2017-09-13] MEDS: ASPIRIN EC 325 MG TABLET PO SCH (21:28)
[2017-09-13] MEDS: SERTRALINE 25 MG TABLET PO SCH (21:28)
[2017-09-14] MEDS: ALBUTEROL/IPRATROPIUM 3 ML NEB RESP TX SCH ×7 (00:09→23:22)
[2017-09-14] MEDS: HYDROmorphone 2 MG/1 ML VIAL IV PRN ×2 (00:52→04:22)
[2017-09-14 03:53] LABS: ABG Base Excess -0.5 MMOL/L (-2.5-2.5); ABG HCO3 25.4 MMOL/L (20-26); ABG Oxygen Saturation 97.9 % (95-100); ABG PCO2 46.6 MM HG (35-48); ABG PH 7.354 (7.35-7.45); ABG PO2 124.7 MM HG (80-95); ABG TCO2 26.8 MMOL/L (23-27); Allen Test Positive; Pt O2 Delivery Device Ventilator
[2017-09-14] MEDS: PHENYLEPHRINE DRIP 40 MG/250 ML PREMIX IV SCH ×2 (04:20→11:01)
[2017-09-14 04:43] LABS: Basophils % 0.1 % (0.0-0.8); Hematocrit 34.1 VOL% (42.0-52.0); Hemoglobin 11.6 GM/DL (14.0-18.0); Immature Granulocytes % 1.4 %; Immature Granulocytes Absolute 0.19 #; Lymphocytes # 0.9 10*3/uL (1.4-4.0); Lymphocytes % 6.7 % (21.2-54.2); Mean Corpuscular Hemoglobin 31 PG (27-34); Mean Corpuscular Volume 92.4 FL (87-102); Mean Platelet Volume 11.4 FL (9.6-12.0); Monocytes # 0.7 10*3/uL (0.11-0.8); Monocytes % 5.3 % (1.7-12.7); NRBC # 0.05 10*3/uL; Neutrophils # 11.8 10*3/uL (1.4-7.4); Neutrophils % 86.5 % (38.7-73.9); Platelet Count 187 T/CUMM (130-400); Red Blood Count 3.69 MC/CUMM (3.8-5.5); Red Cell Distribution Width 13.2 % (9.3-17.3); White Blood Count 13.7 T/CUMM (4-12)
[2017-09-14] MEDS: PROPOFOL 1,000 MG/100 ML BOTTLE IV SCH ×5 (04:50→22:50)
[2017-09-14 05:51] LABS: Albumin 2.7 G/DL (3.4-5.0); Bilirubin,Direct 0.53 MG/DL (0.0-0.20); Bilirubin,Total 0.9 MG/DL (0.2-1.0); Calcium 8.2 MG/DL (8.5-10.1); Magnesium 2.5 MG/DL (1.8-2.4); Osmolality,Calculated 286.7 MOS/KG (273-304); Potassium 4.2 MMOL/L (3.5-5.1); Total Protein 5.9 G/DL (6.4-8.3)
[2017-09-14] MEDS: methylPREDNISolone SOD SUC 40 MG/1 ML VIAL IV SCH ×2 (06:11→18:17)
[2017-09-14 07:37] LABS: Band Neutrophils 4 % (0-10); Lymphocytes 4 % (20-55); Segmented Neutrophils 90 % (50-85); Total Cells Counted 100
[2017-09-14 07:39] LABS: Hypochromasia Slight
[2017-09-14 07:40] LABS: Microcytosis 1+; Platelet Estimate Adequate
[2017-09-14 08:02] LABS: CKMB % 1.1 %
[2017-09-14 08:04] LABS: Troponin I Only 14.1 NG/ML (0.00-0.045)
[2017-09-14 08:28] LABS: ABG Base Excess -1.4 MMOL/L (-2.5-2.5); ABG HCO3 23.2 MMOL/L (20-26); ABG Oxygen Saturation 96.9 % (95-100); ABG PCO2 50.8 MM HG (35-48); ABG PH 7.309 (7.35-7.45); Allen Test Positive; Pt O2 Delivery Device Ventilator
[2017-09-14] MEDS ORDERED: FUROSEMIDE 40 MG/4 ML VIAL IV ONE ×2 (08:49)
[2017-09-14] MEDS: INSULIN REGULAR 100 UNIT/ML SUBCUT SCH ×3 (09:18→18:17)
[2017-09-14] MEDS: INSULIN NPH 100 UNIT/ML SUBCUT SCH ×2 (09:18→20:41)
[2017-09-14] MEDS: ASPIRIN EC 325 MG TABLET PO SCH (09:19)
[2017-09-14] MEDS: DOCUSATE SODIUM 100 MG CAPSULE PO SCH (09:19)
[2017-09-14] MEDS: CILOSTAZOL 100 MG TABLET PO SCH (09:19)
[2017-09-14] MEDS: PANTOPRAZOLE 40 MG TABLET PO SCH (09:19)
[2017-09-14] MEDS: SERTRALINE 25 MG TABLET PO SCH (09:19)
[2017-09-14] MEDS: FERROUS SULFATE 325 MG TABLET PO SCH (09:20)
[2017-09-14] MEDS: CHLORHEXIDINE 0.12% ORAL RINSE 60 ML BOTTLE SWISH/SPIT SCH ×2 (09:20→20:41)
[2017-09-14 12:44] LABS: Hepatitis A Ab IgM Quant 0.03 Index; Hepatitis A Ab IgM Result Negative (Negative); Hepatitis B Core IgM Quant 0.12 Index; Hepatitis B Core IgM Result Negative (Negative); Hepatitis C Virus Ab Quant 0.08 Index; Hepatitis C Virus Ab Result Negative (Negative)
[2017-09-14 13:32] LABS: Hepatitis B Surface Ag Quant 0.23 Index; Hepatitis B Surface Ag Result Negative (Negative)
[2017-09-14] MEDS ORDERED: INSULIN NPH 100 UNIT/ML SUBCUT SCH (16:30)
[2017-09-14] MEDS: cefTRIAXone 1,000 MG in SYRINGE 1 EACH IV SCH (20:39)
[2017-09-14] MEDS: ENOXAPARIN 40 MG/0.4 ML SYRINGE SUBCUT SCH (20:41)
[2017-09-15] MEDS: INSULIN REGULAR 100 UNIT/ML SUBCUT SCH ×4 (00:18→18:16)
[2017-09-15] MEDS: ALBUTEROL/IPRATROPIUM 3 ML NEB RESP TX SCH ×5 (07:17→18:44)
[2017-09-15] MEDS ORDERED: METOCLOPRAMIDE 10 MG/2 ML VIAL ONE (08:54)
[2017-09-15 09:56] LABS: Albumin 2.4 G/DL (3.4-5.0); Bilirubin,Direct 0.39 MG/DL (0.0-0.20); Bilirubin,Indirect 0.3 MG/DL (0.0-1.0); Bilirubin,Total 0.7 MG/DL (0.2-1.0); Calcium 8.5 MG/DL (8.5-10.1); Osmolality,Calculated 304.6 MOS/KG (273-304); Potassium 3.8 MMOL/L (3.5-5.1); Total Protein 5.1 G/DL (6.4-8.3)
[2017-09-15] MEDS: PHENYLEPHRINE DRIP 40 MG/250 ML PREMIX IV SCH (10:17)
[2017-09-15] MEDS: methylPREDNISolone SOD SUC 40 MG/1 ML VIAL IV SCH (10:18)
[2017-09-15] MEDS: FERROUS SULFATE 325 MG TABLET PO SCH (10:19)
[2017-09-15] MEDS: PANTOPRAZOLE 40 MG TABLET PO SCH (10:19)
[2017-09-15] MEDS: CILOSTAZOL 100 MG TABLET PO SCH (10:19)
[2017-09-15] MEDS: DOCUSATE SODIUM 100 MG CAPSULE PO SCH (10:19)
[2017-09-15] MEDS: SERTRALINE 25 MG TABLET PO SCH (10:19)
[2017-09-15] MEDS: INSULIN NPH 100 UNIT/ML SUBCUT SCH ×2 (10:19→20:22)
[2017-09-15] MEDS: ASPIRIN EC 325 MG TABLET PO SCH (10:19)
[2017-09-15] MEDS: CHLORHEXIDINE 0.12% ORAL RINSE 60 ML BOTTLE SWISH/SPIT SCH ×2 (10:19→20:22)
[2017-09-15] MEDS: PROPOFOL 1,000 MG/100 ML BOTTLE IV SCH ×4 (10:20→23:31)
[2017-09-15 10:39] LABS: Basophils % 0.1 % (0.0-0.8); Hematocrit 30.6 VOL% (42.0-52.0); Hemoglobin 10.6 GM/DL (14.0-18.0); Immature Granulocytes Absolute 0.15 #; Lymphocytes # 0.6 10*3/uL (1.4-4.0); Lymphocytes % 3.8 % (21.2-54.2); Mean Corpuscular HGB Conc 34.6 GM/DL (32-36); Mean Corpuscular Hemoglobin 32 PG (27-34); Mean Corpuscular Volume 90.8 FL (87-102); Mean Platelet Volume 11.5 FL (9.6-12.0); Monocytes # 0.6 10*3/uL (0.11-0.8); Monocytes % 4.1 % (1.7-12.7); Neutrophils # 13.5 10*3/uL (1.4-7.4); Platelet Count 207 T/CUMM (130-400); Red Blood Count 3.37 MC/CUMM (3.8-5.5); Red Cell Distribution Width 12.8 % (9.3-17.3); White Blood Count 14.8 T/CUMM (4-12)
[2017-09-15 11:13] LABS: CKMB % 0.5 %
[2017-09-15 11:14] LABS: Troponin I Only 9.83 NG/ML (0.00-0.045)
[2017-09-15 11:41] LABS: ABG Base Excess 4.7 MMOL/L (-2.5-2.5); ABG HCO3 28.7 MMOL/L (20-26); ABG Oxygen Saturation 99.3 % (95-100); ABG PCO2 41.4 MM HG (35-48); ABG PH 7.454 (7.35-7.45); ABG TCO2 25.9 MMOL/L (23-27)
[2017-09-15 11:47] LABS: Phosphorous 2.9 MG/DL (2.5-4.9); Prealbumin 9.5 MG/DL (20-40)
[2017-09-15 12:17] LABS: Hypochromasia 2+; Microcytosis 2+
[2017-09-15] MEDS: METOCLOPRAMIDE 10 MG/2 ML VIAL IV SCH ×2 (13:41→17:07)
[2017-09-15] MEDS ORDERED: DILTIAZEM 50 MG/10 ML VIAL IV ONE (15:37)
[2017-09-15] MEDS ORDERED: AMIODARONE INJ 150 MG in DEXTROSE 5% 100 ML IV ONE (15:38)
[2017-09-15] MEDS ORDERED: SODIUM CHLORIDE 0.9% 100 ML IV ONE (15:41)
[2017-09-15] MEDS ORDERED: DILTIAZEM 100 MG VIAL.ADD IV ONE (15:41)
[2017-09-15] MEDS ORDERED: AMIODARONE 450 MG/9 ML VIAL IV ONE (15:44)
[2017-09-15] MEDS: DILTIAZEM INJ 100 MG in SODIUM CHLORIDE 0.9% 100 ML IV SCH (15:51)
[2017-09-15] MEDS ORDERED: AMIODARONE INJ 450 MG in DEXTROSE 5% 241 ML IV SCH ×2 (16:00)
[2017-09-15] MEDS: MORPHINE 2 MG/1 ML SYRINGE IV PRN (17:14)
[2017-09-15] MEDS ORDERED: METOPROLOL TARTRATE 25 MG TABLET PO SCH (17:30)
[2017-09-15] MEDS ORDERED: ALBUMIN 5% 25 GM in PREMIX 1 EACH IV ONE (17:30)
[2017-09-15] MEDS: cefTRIAXone 1,000 MG in SYRINGE 1 EACH IV SCH (20:22)
[2017-09-15] MEDS: ENOXAPARIN 40 MG/0.4 ML SYRINGE SUBCUT SCH (20:22)
[2017-09-15] MEDS: AMIODARONE INJ 450 MG in DEXTROSE 5% 241 ML IV SCH (23:40)
[2017-09-16] MEDS: ALBUTEROL/IPRATROPIUM 3 ML NEB RESP TX SCH ×6 (00:19→20:28)
[2017-09-16] MEDS: INSULIN REGULAR 100 UNIT/ML SUBCUT SCH ×4 (00:40→19:38)
[2017-09-16] MEDS: METOCLOPRAMIDE 10 MG/2 ML VIAL IV SCH ×3 (00:41→19:39)
[2017-09-16] MEDS: PROPOFOL 1,000 MG/100 ML BOTTLE IV SCH ×2 (03:30→14:00)
[2017-09-16 03:34] LABS: Allen Test Positive; Pt O2 Delivery Device Ventilator
[2017-09-16 03:35] LABS: ABG Base Excess 4.9 MMOL/L (-2.5-2.5); ABG HCO3 28.2 MMOL/L (20-26); ABG Oxygen Saturation 97.7 % (95-100); ABG PCO2 36.8 MM HG (35-48); ABG PH 7.502 (7.35-7.45); ABG PO2 106.5 MM HG (80-95); ABG TCO2 29.3 MMOL/L (23-27)
[2017-09-16 05:13] LABS: Basophils % 0.2 % (0.0-0.8); Eosinophils % 0.1 % (0.00-10.9); Hematocrit 34.1 VOL% (42.0-52.0); Hemoglobin 11.7 GM/DL (14.0-18.0); Immature Granulocytes % 5.2 %; Immature Granulocytes Absolute 0.98 #; Lymphocytes # 1.5 10*3/uL (1.4-4.0); Lymphocytes % 7.9 % (21.2-54.2); Mean Corpuscular HGB Conc 34.3 GM/DL (32-36); Mean Corpuscular Hemoglobin 31 PG (27-34); Mean Corpuscular Volume 91.4 FL (87-102); Mean Platelet Volume 11.2 FL (9.6-12.0); Monocytes # 1.6 10*3/uL (0.11-0.8); Monocytes % 8.4 % (1.7-12.7); NRBC # 1.17 10*3/uL; Neutrophils # 14.9 10*3/uL (1.4-7.4); Neutrophils % 78.2 % (38.7-73.9); Platelet Count 269 T/CUMM (130-400); Red Blood Count 3.73 MC/CUMM (3.8-5.5)
[2017-09-16] MEDS: PHENYLEPHRINE DRIP 40 MG/250 ML PREMIX IV SCH (05:55)
[2017-09-16] MEDS ORDERED: methylPREDNISolone SOD SUC 40 MG/1 ML VIAL IV SCH (06:00)
[2017-09-16 06:03] LABS: Bilirubin,Direct 0.43 MG/DL (0.0-0.20); Bilirubin,Total 0.8 MG/DL (0.2-1.0)
[2017-09-16 06:04] LABS: Bilirubin,Indirect 0.4 MG/DL (0.0-1.0); CKMB % 0.8 %; Magnesium 2.8 MG/DL (1.8-2.4); Osmolality,Calculated 310.6 MOS/KG (273-304); Potassium 3.9 MMOL/L (3.5-5.1); Total Protein 5.9 G/DL (6.4-8.3)
[2017-09-16 06:09] LABS: Troponin I Only 18.1 NG/ML (0.00-0.045)
[2017-09-16] MEDS: HYDROmorphone 2 MG/1 ML VIAL IV PRN ×2 (06:26→21:16)
[2017-09-16 07:35] LABS: Band Neutrophils 7 % (0-10); Lymphocytes 13 % (20-55); Metamyelocytes 2 %; Nucleated Red Blood Cells 3 (0-5); Segmented Neutrophils 68 % (50-85); Total Cells Counted 100
[2017-09-16 07:36] LABS: Hypochromasia 1+; Microcytosis 1+; Platelet Estimate Normal
[2017-09-16] MEDS: FERROUS SULFATE 325 MG TABLET PO SCH (08:31)
[2017-09-16] MEDS: CLINDAMYCIN INJ 600 MG in PREMIX 1 EACH IV SCH ×3 (09:34→22:30)
[2017-09-16] MEDS: ASPIRIN EC 325 MG TABLET PO SCH (09:34)
[2017-09-16] MEDS: LEVOFLOXACIN INJ 500 MG in PREMIX 1 EACH IV SCH (09:34)
[2017-09-16] MEDS: INSULIN NPH 100 UNIT/ML SUBCUT SCH ×2 (09:35→20:52)
[2017-09-16] MEDS: DOCUSATE SODIUM 100 MG CAPSULE PO SCH (09:35)
[2017-09-16] MEDS: PANTOPRAZOLE 40 MG TABLET PO SCH (09:35)
[2017-09-16] MEDS: CILOSTAZOL 100 MG TABLET PO SCH (09:35)
[2017-09-16] MEDS: SERTRALINE 25 MG TABLET PO SCH (09:36)
[2017-09-16] MEDS: CHLORHEXIDINE 0.12% ORAL RINSE 60 ML BOTTLE SWISH/SPIT SCH ×2 (10:24→20:53)
[2017-09-16] MEDS: methylPREDNISolone SOD SUC 40 MG/1 ML VIAL IV SCH ×2 (10:29→19:51)
[2017-09-16] MEDS: METOPROLOL TARTRATE 25 MG TABLET PO SCH ×2 (15:58→20:52)
[2017-09-16] MEDS: DILTIAZEM INJ 100 MG in SODIUM CHLORIDE 0.9% 100 ML IV SCH ×2 (16:03→21:00)
[2017-09-16] MEDS: AMIODARONE INJ 450 MG in DEXTROSE 5% 241 ML IV SCH (16:31)
[2017-09-16] MEDS ORDERED: DILTIAZEM 50 MG/10 ML VIAL IV ONE ×2 (17:10→17:13)
[2017-09-16] MEDS ORDERED: MAGNESIUM SULF RIDER 50 ML IV ONE (18:15)
[2017-09-16 18:22] LABS: Basophils # 0.1 10*3/uL (0.0-0.2); Basophils % 0.3 % (0.0-0.8); Hematocrit 38.1 VOL% (42.0-52.0); Hemoglobin 12.9 GM/DL (14.0-18.0); Immature Granulocytes % 4.1 %; Immature Granulocytes Absolute 0.83 #; Lymphocytes # 3.3 10*3/uL (1.4-4.0); Lymphocytes % 16.2 % (21.2-54.2); Mean Corpuscular HGB Conc 33.9 GM/DL (32-36); Mean Corpuscular Hemoglobin 32 PG (27-34); Mean Corpuscular Volume 93.2 FL (87-102); Mean Platelet Volume 11.5 FL (9.6-12.0); Monocytes # 1.6 10*3/uL (0.11-0.8); Monocytes % 8.1 % (1.7-12.7); NRBC # 0.79 10*3/uL; Neutrophils # 14.5 10*3/uL (1.4-7.4); Neutrophils % 71.3 % (38.7-73.9); Platelet Count 265 T/CUMM (130-400); Red Blood Count 4.09 MC/CUMM (3.8-5.5); Red Cell Distribution Width 13.2 % (9.3-17.3); White Blood Count 20.4 T/CUMM (4-12)
[2017-09-16 18:36] LABS: Calcium 8.7 MG/DL (8.5-10.1); Magnesium 2.7 MG/DL (1.8-2.4); Osmolality,Calculated 315.3 MOS/KG (273-304); Potassium 4.7 MMOL/L (3.5-5.1)
[2017-09-16 18:46] LABS: Band Neutrophils 6 % (0-10); Lymphocytes 16 % (20-55); Metamyelocytes 1 %; Myelocytes 2 %; Nucleated Red Blood Cells 5 (0-5); Segmented Neutrophils 72 % (50-85); Total Cells Counted 100
[2017-09-16 18:47] LABS: Platelet Estimate Adequate
[2017-09-16] MEDS ORDERED: POTASSIUM CHLORIDE INJ 40 MEQ in DEXTROSE 5% NACL 0.22% 1,000 ML IV SCH (19:00)
[2017-09-16] MEDS: ENOXAPARIN 40 MG/0.4 ML SYRINGE SUBCUT SCH (20:52)
[2017-09-17] MEDS: METOCLOPRAMIDE 10 MG/2 ML VIAL IV SCH ×3 (00:10→17:07)
[2017-09-17] MEDS: INSULIN REGULAR 100 UNIT/ML SUBCUT SCH ×4 (00:11→17:15)
[2017-09-17] MEDS: AMIODARONE INJ 450 MG in DEXTROSE 5% 241 ML IV SCH ×3 (02:18→15:00)
[2017-09-17] MEDS: DILTIAZEM INJ 100 MG in SODIUM CHLORIDE 0.9% 100 ML IV SCH ×5 (03:17→21:55)
[2017-09-17] MEDS: ALBUTEROL/IPRATROPIUM 3 ML NEB RESP TX SCH ×6 (03:26→19:10)
[2017-09-17 03:32] LABS: ABG HCO3 24.4 MMOL/L (20-26); ABG Oxygen Saturation 95.3 % (95-100); ABG PCO2 38.7 MM HG (35-48); ABG PH 7.409 (7.35-7.45); ABG PO2 81.4 MM HG (80-95); ABG TCO2 21.6 MMOL/L (23-27); Allen Test Positive; Pt O2 Delivery Device Ventilator
[2017-09-17 04:18] LABS: Basophils # 0.1 10*3/uL (0.0-0.2); Basophils % 0.3 % (0.0-0.8); Hematocrit 35.7 VOL% (42.0-52.0); Hemoglobin 11.7 GM/DL (14.0-18.0); Immature Granulocytes % 4.1 %; Immature Granulocytes Absolute 0.81 #; Lymphocytes # 0.7 10*3/uL (1.4-4.0); Lymphocytes % 3.4 % (21.2-54.2); Mean Corpuscular HGB Conc 32.8 GM/DL (32-36); Mean Corpuscular Hemoglobin 31 PG (27-34); Mean Corpuscular Volume 93.9 FL (87-102); Mean Platelet Volume 11.5 FL (9.6-12.0); Monocytes # 1.6 10*3/uL (0.11-0.8); Monocytes % 8.2 % (1.7-12.7); NRBC # 1.05 10*3/uL; Neutrophils # 16.8 10*3/uL (1.4-7.4); Platelet Count 285 T/CUMM (130-400); Red Cell Distribution Width 13.3 % (9.3-17.3)
[2017-09-17 04:25] LABS: INR 1.7; PT Patient Result 17.3 SECS
[2017-09-17 04:50] LABS: Albumin 2.7 G/DL (3.4-5.0); Bilirubin,Total 1.2 MG/DL (0.2-1.0); CKMB % 1.1 %; Calcium 8.5 MG/DL (8.5-10.1); Magnesium 3.2 MG/DL (1.8-2.4); Osmolality,Calculated 323.7 MOS/KG (273-304); Potassium 5.1 MMOL/L (3.5-5.1); Total Protein 5.5 G/DL (6.4-8.3)
[2017-09-17 04:51] LABS: Troponin I Only 18.4 NG/ML (0.00-0.045)
[2017-09-17 05:19] LABS: Band Neutrophils 1 % (0-10); Lymphocytes 3 % (20-55); Nucleated Red Blood Cells 9 (0-5); Segmented Neutrophils 89 % (50-85); Total Cells Counted 100
[2017-09-17 05:20] LABS: Giant Platelets Few; Hypochromasia 1+; Microcytosis Slight; Platelet Estimate Adequate
[2017-09-17] MEDS: PHENYLEPHRINE DRIP 40 MG/250 ML PREMIX IV SCH (06:04)
[2017-09-17] MEDS: methylPREDNISolone SOD SUC 40 MG/1 ML VIAL IV SCH ×2 (06:26→19:37)
[2017-09-17] MEDS: CLINDAMYCIN INJ 600 MG in PREMIX 1 EACH IV SCH ×3 (06:27→22:18)
[2017-09-17] MEDS: LEVOFLOXACIN INJ 500 MG in PREMIX 1 EACH IV SCH (06:35)
[2017-09-17] MEDS: DEXTROSE 5% NACL 0.22% 1,000 ML IV SCH (07:15)
[2017-09-17] MEDS: HYDROmorphone 2 MG/1 ML VIAL IV PRN (07:25)
[2017-09-17] MEDS: FERROUS SULFATE 325 MG TABLET PO SCH (08:36)
[2017-09-17] MEDS: ASPIRIN EC 325 MG TABLET PO SCH (08:42)
[2017-09-17] MEDS: INSULIN NPH 100 UNIT/ML SUBCUT SCH ×2 (08:42→22:07)
[2017-09-17] MEDS: METOPROLOL TARTRATE 50 MG TABLET PO SCH ×2 (08:42→22:08)
[2017-09-17] MEDS: DOCUSATE SODIUM 100 MG CAPSULE PO SCH (08:42)
[2017-09-17] MEDS: CHLORHEXIDINE 0.12% ORAL RINSE 60 ML BOTTLE SWISH/SPIT SCH ×2 (08:43→22:08)
[2017-09-17] MEDS: PANTOPRAZOLE 40 MG TABLET PO SCH (08:43)
[2017-09-17] MEDS: CILOSTAZOL 100 MG TABLET PO SCH (08:43)
[2017-09-17] MEDS: SERTRALINE 25 MG TABLET PO SCH (08:45)
[2017-09-17] MEDS: MORPHINE 2 MG/1 ML SYRINGE IV PRN ×2 (13:07→17:27)
[2017-09-17] MEDS: PROPOFOL 1,000 MG/100 ML BOTTLE IV SCH ×2 (17:12→19:44)
[2017-09-17] MEDS: ENOXAPARIN 40 MG/0.4 ML SYRINGE SUBCUT SCH (22:08)
[2017-09-18] MEDS: ALBUTEROL/IPRATROPIUM 3 ML NEB RESP TX SCH ×7 (00:13→23:55)
[2017-09-18] MEDS: INSULIN REGULAR 100 UNIT/ML SUBCUT SCH ×4 (00:53→18:44)
[2017-09-18] MEDS: METOCLOPRAMIDE 10 MG/2 ML VIAL IV SCH ×3 (00:53→16:27)
[2017-09-18 02:48] LABS: ABG Oxygen Saturation 97.8 % (95-100); ABG PCO2 32.5 MM HG (35-48); ABG PH 7.518 (7.35-7.45); ABG PO2 97.6 MM HG (80-95)
[2017-09-18] MEDS: DILTIAZEM INJ 100 MG in SODIUM CHLORIDE 0.9% 100 ML IV SCH ×4 (03:33→22:52)
[2017-09-18] MEDS: DEXTROSE 5% NACL 0.22% 1,000 ML IV SCH (03:55)
[2017-09-18 04:57] LABS: Basophils # 0.1 10*3/uL (0.0-0.2); Basophils % 0.4 % (0.0-0.8); Hematocrit 37.8 VOL% (42.0-52.0); Hemoglobin 12.7 GM/DL (14.0-18.0); Immature Granulocytes % 3.6 %; Immature Granulocytes Absolute 0.85 #; Lymphocytes # 1.5 10*3/uL (1.4-4.0); Lymphocytes % 6.2 % (21.2-54.2); Mean Corpuscular HGB Conc 33.6 GM/DL (32-36); Mean Corpuscular Hemoglobin 31 PG (27-34); Mean Corpuscular Volume 93.6 FL (87-102); Mean Platelet Volume 11.1 FL (9.6-12.0); Monocytes # 1.4 10*3/uL (0.11-0.8); Monocytes % 5.7 % (1.7-12.7); NRBC # 2.29 10*3/uL; Neutrophils % 84.1 % (38.7-73.9); Platelet Count 270 T/CUMM (130-400); Red Blood Count 4.04 MC/CUMM (3.8-5.5); Red Cell Distribution Width 13.5 % (9.3-17.3); White Blood Count 23.7 T/CUMM (4-12)
[2017-09-18 05:24] LABS: Band Neutrophils 1 % (0-10); Hypochromasia 1+; Lymphocytes 8 % (20-55); Nucleated Red Blood Cells 10 (0-5); Platelet Estimate Adequate; Segmented Neutrophils 86 % (50-85); Total Cells Counted 100
[2017-09-18 05:25] LABS: Giant Platelets Few; Microcytosis Slight; Ovalocytes Slight; PT Patient Result 20.5 SECS
[2017-09-18 05:40] LABS: Albumin 2.8 G/DL (3.4-5.0); Bilirubin,Total 1.9 MG/DL (0.2-1.0); CKMB % 0.3 %; Calcium 8.8 MG/DL (8.5-10.1); Magnesium 3.4 MG/DL (1.8-2.4); Osmolality,Calculated 334.3 MOS/KG (273-304); Potassium 4.4 MMOL/L (3.5-5.1); Total Protein 5.6 G/DL (6.4-8.3)
[2017-09-18 05:42] LABS: Troponin I Only 30.5 NG/ML (0.00-0.045)
[2017-09-18] MEDS: HYDROmorphone 2 MG/1 ML VIAL IV PRN (06:15)
[2017-09-18] MEDS: PHENYLEPHRINE DRIP 40 MG/250 ML PREMIX IV SCH (07:45)
[2017-09-18] MEDS: CLINDAMYCIN INJ 600 MG in PREMIX 1 EACH IV SCH ×3 (07:45→22:51)
[2017-09-18] MEDS: AMIODARONE INJ 450 MG in DEXTROSE 5% 241 ML IV SCH ×2 (08:12→21:31)
[2017-09-18] MEDS: CILOSTAZOL 100 MG TABLET PO SCH (08:31)
[2017-09-18] MEDS: LEVOFLOXACIN INJ 500 MG in PREMIX 1 EACH IV SCH (08:31)
[2017-09-18] MEDS: FERROUS SULFATE 325 MG TABLET PO SCH (08:31)
[2017-09-18] MEDS: PANTOPRAZOLE 40 MG TABLET PO SCH (08:32)
[2017-09-18] MEDS: METOPROLOL TARTRATE 50 MG TABLET PO SCH ×2 (08:32→21:31)
[2017-09-18] MEDS: ASPIRIN EC 325 MG TABLET PO SCH (08:32)
[2017-09-18] MEDS: DOCUSATE SODIUM 100 MG CAPSULE PO SCH (08:32)
[2017-09-18] MEDS: SERTRALINE 25 MG TABLET PO SCH (08:32)
[2017-09-18] MEDS: INSULIN NPH 100 UNIT/ML SUBCUT SCH ×2 (08:53→21:29)
[2017-09-18] MEDS: CHLORHEXIDINE 0.12% ORAL RINSE 60 ML BOTTLE SWISH/SPIT SCH ×2 (08:53→21:30)
[2017-09-18] MEDS: PROPOFOL 1,000 MG/100 ML BOTTLE IV SCH ×2 (15:03→15:57)
[2017-09-18] MEDS: LACTULOSE 20 GM/30 ML UDCUP PO SCH ×6 (15:57→21:32)
[2017-09-18] MEDS ORDERED: PHYTONADIONE 10 MG/1 ML AMP SUBCUT SCH (17:00)
[2017-09-18] MEDS ORDERED: AMIODARONE INJ 50 MG in DEXTROSE 5% 100 ML IV ONE (18:37)
[2017-09-18] MEDS: ENOXAPARIN 40 MG/0.4 ML SYRINGE SUBCUT SCH (21:34)
[2017-09-19] MEDS: LACTULOSE 20 GM/30 ML UDCUP PO SCH ×3 (00:07→03:14)
[2017-09-19] MEDS: INSULIN REGULAR 100 UNIT/ML SUBCUT SCH ×2 (00:13→06:15)
[2017-09-19] MEDS: METOCLOPRAMIDE 10 MG/2 ML VIAL IV SCH (00:13)
[2017-09-19] MEDS: ALBUTEROL/IPRATROPIUM 3 ML NEB RESP TX SCH ×2 (03:03→07:15)
[2017-09-19 03:12] LABS: ABG Base Excess 2.1 MMOL/L (-2.5-2.5); ABG HCO3 26.3 MMOL/L (20-26); ABG Oxygen Saturation 99.1 % (95-100); ABG PCO2 34.8 MM HG (35-48); ABG PH 7.471 (7.35-7.45); ABG TCO2 22.2 MMOL/L (23-27); Allen Test Positive; Pt O2 Delivery Device Ventilator
[2017-09-19] MEDS: PROPOFOL 1,000 MG/100 ML BOTTLE IV SCH (03:21)
[2017-09-19] MEDS: MORPHINE 2 MG/1 ML SYRINGE IV PRN (04:47)
[2017-09-19] MEDS: DILTIAZEM INJ 100 MG in SODIUM CHLORIDE 0.9% 100 ML IV SCH (04:48)
[2017-09-19 05:02] LABS: Basophils # 0.1 10*3/uL (0.0-0.2); Basophils % 0.3 % (0.0-0.8); Hemoglobin 12.8 GM/DL (14.0-18.0); Immature Granulocytes % 2.7 %; Immature Granulocytes Absolute 0.68 #; Lymphocytes % 3.9 % (21.2-54.2); Mean Corpuscular HGB Conc 32.8 GM/DL (32-36); Mean Corpuscular Hemoglobin 31 PG (27-34); Mean Corpuscular Volume 95.4 FL (87-102); Mean Platelet Volume 11.2 FL (9.6-12.0); Monocytes # 1.2 10*3/uL (0.11-0.8); Monocytes % 4.7 % (1.7-12.7); NRBC # 1.94 10*3/uL; Neutrophils # 22.1 10*3/uL (1.4-7.4); Neutrophils % 88.4 % (38.7-73.9); Platelet Count 252 T/CUMM (130-400); Red Blood Count 4.09 MC/CUMM (3.8-5.5); Red Cell Distribution Width 14.2 % (9.3-17.3); White Blood Count 24.9 T/CUMM (4-12)
[2017-09-19 05:47] LABS: Band Neutrophils 3 % (0-10); Hypochromasia 1+; Lymphocytes 1 % (20-55); Nucleated Red Blood Cells 7 (0-5); Segmented Neutrophils 92 % (50-85); Total Cells Counted 100
[2017-09-19 05:48] LABS: Microcytosis Slight; Polychromasia Slight
[2017-09-19 05:49] LABS: Platelet Estimate Normal
[2017-09-19 05:58] LABS: Alanine Aminotransferase 3224 U/L (16-61); Albumin 2.7 G/DL (3.4-5.0); Alkaline Phosphatase 138 U/L (45-117); Aspartate Amino Transferase 1091 U/L (0-37); Blood Urea Nitrogen 88 MG/DL (7-18); Glucose 337 MG/DL (74-106); Potassium 3.2 MMOL/L (3.5-5.1); Sodium 157 MMOL/L (136-145); Total Protein 5.6 G/DL (6.4-8.3)
[2017-09-19] MEDS: PHENYLEPHRINE DRIP 40 MG/250 ML PREMIX IV SCH (06:14)
[2017-09-19] MEDS: CLINDAMYCIN INJ 600 MG in PREMIX 1 EACH IV SCH (06:15)
[2017-09-19] MEDS: LEVOFLOXACIN INJ 500 MG in PREMIX 1 EACH IV SCH (06:37)
[2017-09-19] MEDS ORDERED: AMIODARONE 150 MG/3 ML VIAL ONE (08:31)
[2017-09-19] MEDS ORDERED: AMIODARONE INJ 50 MG in DEXTROSE 5% 100 ML IV ONE (08:44)
[2017-09-19] MEDS: HYDROmorphone 2 MG/1 ML VIAL IV PRN (08:44)
[2017-09-19] MEDS ORDERED: DILTIAZEM 50 MG/10 ML VIAL IV ONE (08:44)
[2017-09-19] MEDS ORDERED: LIDOCAINE 100 MG/5 ML SYRINGE ONE (08:59)
[2017-09-19] MEDS ORDERED: ATROPINE 1 MG/10 ML SYRINGE ONE (08:59)
[2017-09-19] MEDS ORDERED: EPINEPHrine 1 MG/ML VIAL ONE (08:59)
[2017-09-19] MEDS ORDERED: INSULIN NPH 100 UNIT/ML SUBCUT SCH (09:00)
[2017-09-19 10:53] VITALS: BP 111/56
== END 2017-09-19 09:25 | disposition expired | DRG 235 ==
LOC: N.ED 04:32 → N.TELEN 06:11 → N.CVR 06:11 → N.TELEN 14:28 → N.CVR 09-10 09:04 → N.TELES 09-11 15:02 → N.ICU 09-13 05:18